=== PATIENT | male | born 1955 | race Caucasian/White ===

== ENCOUNTER 2018-04-20 14:48 | Emergency (ER) | payer BC, MEDICARE, OTHER ==
[2018-04-20] MEDS ORDERED: Lidocaine 2% with EPINEPHrine 1:100,000 20 ML MDV INJECT ONE (14:55)
[2018-04-20] MEDS ORDERED: Diphtheria,Pertussis(Acell),Tetanus Vaccine 0.5 ML Syringe IM ONE (15:54)
[2018-04-20] MEDS ORDERED: Take Home: Cyclobenzaprine 10 MG Tab, 4 Tab Pack PO ONE (15:56)
--- NOTE | 2018-04-20 16:02 | EDM.PDOC ---
ED HPI GENERAL MEDICAL PROBLEM - General Chief Complaint: Laceration Stated Complaint: left cabrera lac Time Seen by Provider: 04/20/18 14:55 Source of Information: Reports: Patient History Limitations: Reports: No Limitations - History of Present Illness INITIAL COMMENTS - FREE TEXT/NARRATIVE: Patient came in after catching his left leg in a grain auger. He is bleeding profusely from the anterior left leg Duration: Intermittent Location: Reports: Lower Extremity, Left Associated Symptoms: Reports: No Other Symptoms - Related Data Allergies Allergy/AdvReac Type Severity Reaction Status Date / Time codeine AdvReac Headache Verified 01/07/16 10:20 hydrocodone AdvReac Headache Verified 01/07/16 10:20 oxycodone AdvReac Headache Verified 01/07/16 10:20 Home Meds: Home Meds Cetirizine [ZyrTEC] 10 mg PO DAILY 01/07/16 [History] EPINEPHrine [Epipen 2-Juliano] 1 dose IM ASDIRECTED PRN 01/07/16 [History] Multivitamin [Multivitamins] 1 tab PO DAILY 01/07/16 [History] Omalizumab [Xolair] 300 mg SQ Q30D 01/07/16 [History] Ubidecarenone [Coq-10] 150 mg PO DAILY 01/07/16 [History] atorvaSTATin [Lipitor] 40 mg PO BEDTIME 01/07/16 [History] Past Medical History HEENT History: Reports: Hard of Hearing, Other (See Below) Other HEENT History: MYOPIA. PRESBYOPIA. MENIERE'S Cardiovascular History: Reports: CAD, High Cholesterol Respiratory History: Reports: Sleep Apnea Genitourinary History: Reports: Prostate Disorder Musculoskeletal History: Reports: Back Pain, Chronic Psychiatric History: Reports: None Hematologic History: Reports: None Immunologic History: Reports: None Oncologic (Cancer) History: Reports: None Dermatologic History: Reports: Urticaria Other Dermatologic History: ONYCHOMYCOSIS - Past Surgical History Head Surgeries/Procedures: Reports: None HEENT Surgical History: Reports: Tonsillectomy, Other (See Below) GI Surgical History: Reports: Colonoscopy, Hernia Repair/Other Endocrine Surgical History: Reports: None Musculoskeletal Surgical History: Reports: Other (See Below) Oncologic Surgical History: Reports: None Dermatological Surgical History: Reports: None Social & Family History - Caffeine Use Caffeine Use: Reports: None ED ROS GENERAL - Review of Systems Review Of Systems: See Below Constitutional: Reports: No Symptoms HEENT: Reports: No Symptoms Respiratory: Reports: No Symptoms Cardiovascular: Reports: No Symptoms Endocrine: Reports: No Symptoms GI/Abdominal: Reports: No Symptoms : Reports: No Symptoms Musculoskeletal: Reports: No Symptoms Skin: Reports: Wound Neurological: Reports: No Symptoms Psychiatric: Reports: No Symptoms Hematologic/Lymphatic: Reports: No Symptoms Immunologic: Reports: No Symptoms ED EXAM, GENERAL - Physical Exam Exam: See Below Exam Limited By: No Limitations General Appearance: Alert, WD/WN, Mild Distress Eye Exam: Bilateral Eye: EOMI, Normal Inspection Neurological: Alert, Oriented, CN II-XII Intact, Normal Cognition, Normal Gait, Normal Reflexes, No Motor/Sensory Deficits Psychiatric: Normal Affect, Normal Mood Skin Exam: Wound/Incision (11 cm linear wound to anterior cabrera running inferior to superior) ED GENERAL MEDICAL PROCEDURES - Laceration/Wound Repair Left Lower Anterior Leg Appearance: Muscle, Linear Distal NVT: Neuro & Vascular Intact, No Tendon Injury Anesthetic Type: Local Local Anesthesia - Lidocaine (Xylocaine): 2% with EPI Local Anesthetic Volume: Other (10) Skin Prep: Chlorhexidine (Hibiciens) Exploration/Debridement/Repair: Wound Explored, In a Bloodless Field, Explored to Base, Minimal Debridement, No Foreign Material Found Closed with: Sutures Suture Size: 3-0 # of Sutures: 25 Suture Type: Nylon, Running Suture Size: 3-0 # of Sutures: 6 Repaired with: Vicryl Sterile Dressing Applied: Nurse Tetanus Status Addressed: Yes Complications: No Course - Orders/Labs/Meds Meds: Medications Discontinued Medications Generic Name Dose Route Start Last Admin Trade Name Zoe PRN Reason Stop Dose Admin Lidocaine/Epinephrine 20 ml 04/20/18 14:55 04/20/18 15:02 Xylocaine 2% With Epinephrine 1:100,000 INJECT 04/20/18 14:56 20 ml ONETIME ONE Administration - Re-Assessments/Exams Free Text/Narrative Re-Assessment/Exam: 04/20/18 17:02 Wound anesthetized with 15 mL 2% lidocaine with epi, then flushed with NS and chlorhexadene. Wound inspected. No foreign materials found. Using sterile technique, muscle fascia closed with 6 running sutures of 3-0 vicryl, skin then closed with 25 running sutures of 3-0 nylon sutures. Tetanus vaccination given. Patient tolerated procedure, given signs to watch for, and encouraged to call with any questions or concerns. Verbalized understanding of instructions. Departure - Departure Time of Disposition: 16:15 Disposition: Home, Self-Care 01 Condition: Good Clinical Impression: Laceration of muscle(s) and tendon(s) of anterior muscle group at lower leg level, left leg, initial encounter, Laceration of left lower leg - Discharge Information *PRESCRIPTION DRUG MONITORING PROGRAM REVIEWED*: Not Applicable *COPY OF PRESCRIPTION DRUG MONITORING REPORT IN PATIENT LAURO: Not Applicable Instructions: Laceration Care, Adult, [id number], Sutured Wound Care, Easy-to -Read, Wound Infection, [id number] Forms: ED Department Discharge Additional Instructions: Plan: 1. Follow up with your primary doctor on Monday 2. No submerging the wound in ANY water - bath, ocean, pool, hot tub 3. Watch for any signs of infection including temperature of 101.5F or higher, fever and chills, redness going up the leg, increased swelling, redness, heat 4. May shower 5. Have sutures removed in 14 days 6. Please return to the emergency department this weekend if you have any problems with your left leg. This can include decreased range of motion, increasing amounts of pain, numbness or tingling to the foot. 7. Please call the ER if you have any additional questions or concerns related to your visit. - Problem List & Annotations (1) Laceration of left lower leg SNOMED Code(s): 871837569 Code(s): S81.812A - LACERATION WITHOUT FOREIGN BODY, LEFT LOWER LEG, INIT ENCNTR Status: Acute Priority: Low Current Visit: Yes Qualifiers: Encounter type: initial encounter Qualified Code(s): S81.812A - Laceration without foreign body, left lower leg, initial encounter (2) Laceration of muscle(s) and tendon(s) of anterior muscle group at lower leg level, left leg, initial encounter SNOMED Code(s): 246144900, 153633281 Code(s): S86.222A - LACERAT MUSC/TEND ANT GRP AT LOW LEG LEVEL, LEFT LEG, INIT Status: Acute Priority: Low Current Visit: Yes - Problem List Review Problem List Initiated/Reviewed/Updated: No - Assessment/Plan Assessment:: Left leg laceration to anterior aspect of left lower leg Plan: Plan: 1. Follow up with your primary doctor on Monday 2. No submerging the wound in ANY water - bath, ocean, pool, hot tub 3. Watch for any signs of infection including temperature of 101.5F or higher, fever and chills, redness going up the leg, increased swelling, redness, heat 4. May shower 5. Have sutures removed in 14 days 6. Please return to the emergency department this weekend if you have any problems with your left leg. This can include decreased range of motion, increasing amounts of pain, numbness or tingling to the foot. 7. Please call the ER if you have any additional questions or concerns related to your visit.
[2018-04-20] MEDS ORDERED: Diphtheria,Pertussis(Acell),Tetanus Vaccine 0.5 ML Syringe ONE (16:08)
[2018-04-20 19:34] VITALS: BP 140/69
== END 2018-04-20 16:15 | disposition home or self-care (01) ==
LOC: VM.ED 14:48
DX: S86.222A Laceration of muscle(s) and tendon(s) of anterior muscle group at lower leg level, left leg, initial encounter (principal); I25.10 Atherosclerotic heart disease of native coronary artery without angina pectoris; Z23 Encounter for immunization; Z88.5 Allergy status to narcotic agent; Z88.6 Allergy status to analgesic agent; Z79.899 Other long term (current) drug therapy; Z98.890 Other specified postprocedural states; W23.0XXA Caught, crushed, jammed, or pinched between moving objects, initial encounter
CPT/HCPCS: 12034; 90471; 90715; 99282; A9270

== ENCOUNTER 2018-06-03 08:54 | Emergency (ER) | payer BC ==
--- NOTE | 2018-06-03 09:00 | EDM.PDOC ---
ED HPI GENERAL MEDICAL PROBLEM - General Chief Complaint: Lower Extremity Injury/Pain Stated Complaint: MAY HAVE INFECTION ON HIS LEG Time Seen by Provider: 06/03/18 08:59 Source of Information: Reports: Patient, Old Records, RN, RN Notes Reviewed History Limitations: Reports: No Limitations - History of Present Illness INITIAL COMMENTS - FREE TEXT/NARRATIVE: Patient presents the emergency room at [facility] for the reevaluation of a left lower leg laceration. The patient was seen in this emergency room on April 20, 2018 after he got his left lower leg caught in a gr auger. The patient required suture closure of the laceration. The laceration was closed with 6 sutures and the patient was discharged home with recommendation to follow -up with his PCP the following week. The patient was seen in clinic on April and was started on cephalexin 500 mg 4 times a day. The patient returned to the clinic on April 26, 2018 for a recheck. No changes were made at that time. The patient was again seen in the clinic on May 14, 2018 with concerns of drainage from the wound. The patient was again started on cephalexin 500 mg 3 times a day for 5 days. The patient states today that he continues to have swelling, erythema, warmth around the laceration site. The patient does not have any pain. The patient is able to ambulate normally. The swelling starts just inferior to the left knee and extends down to the left ankle. The patient is here today for evaluation as he is concerned there may be ongoing infection. The patient has not had any fevers or chills. Otherwise no other concerns today. - Related Data Allergies Allergy/AdvReac Type Severity Reaction Status Date / Time codeine AdvReac Headache Verified 04/20/18 19:29 hydrocodone AdvReac Headache Verified 04/20/18 19:29 oxycodone AdvReac Headache Verified 04/20/18 19:29 Home Meds: Home Meds Cetirizine [ZyrTEC] 10 mg PO DAILY 01/07/16 [History] EPINEPHrine [Epipen 2-Juliano] 1 dose IM ASDIRECTED PRN 01/07/16 [History] Multivitamin [Multivitamins] 1 tab PO DAILY 01/07/16 [History] Ubidecarenone [Coq-10] 150 mg PO DAILY 01/07/16 [History] atorvaSTATin [Lipitor] 40 mg PO BEDTIME 01/07/16 [History] Amoxicillin/Clavulanate K [Augmentin 875-125 MG] 1 tab PO BID 04/20/18 [History] Gabapentin [Neurontin] 300 mg PO DAILY 04/20/18 [History] Sulfamethoxazole/Trimethoprim [Bactrim Ds Tablet] 1 each PO BID 9 Days #18 tablet 06/03/18 [Rx] predniSONE 20 mg PO BID 4 Days #8 tab 06/03/18 [Rx] Past Medical History HEENT History: Reports: Hard of Hearing, Other (See Below) Other HEENT History: MYOPIA. PRESBYOPIA. MENIERE'S Cardiovascular History: Reports: CAD, High Cholesterol Respiratory History: Reports: Sleep Apnea Genitourinary History: Reports: Prostate Disorder Musculoskeletal History: Reports: Back Pain, Chronic Psychiatric History: Reports: None Hematologic History: Reports: None Immunologic History: Reports: None Oncologic (Cancer) History: Reports: None Dermatologic History: Reports: Urticaria Other Dermatologic History: ONYCHOMYCOSIS - Past Surgical History Head Surgeries/Procedures: Reports: None HEENT Surgical History: Reports: Tonsillectomy, Other (See Below) GI Surgical History: Reports: Colonoscopy, Hernia Repair/Other Endocrine Surgical History: Reports: None Musculoskeletal Surgical History: Reports: Other (See Below) Oncologic Surgical History: Reports: None Dermatological Surgical History: Reports: None Social & Family History - Caffeine Use Caffeine Use: Reports: None Review of Systems - Review of Systems Review Of Systems: See Below Constitutional: Denies: Chills, Fever Respiratory: Denies: Shortness of Breath, Cough Cardiovascular: Denies: Chest Pain, Palpitations Skin: Reports: Wound (12cm well healing vertical laceration left lower leg) Neurological: Reports: No Symptoms ED EXAM, GENERAL - Physical Exam Exam: See Below Exam Limited By: No Limitations General Appearance: Alert, No Apparent Distress Respiratory/Chest: No Respiratory Distress, Lungs Clear, Normal Breath Sounds Cardiovascular: Normal Peripheral Pulses, Regular Rate, Rhythm Peripheral Pulses: 2+: Radial (L), Radial (R) Neurological: Alert, Oriented Skin Exam: Warm, Dry, Intact, Normal Color, Wound/Incision (Left lower anterior cabrera, well healing 12cm vertical laceration; warm, erythematous, non-tender; no drainage) Departure - Departure Time of Disposition: 09:26 Disposition: Home, Self-Care 01 Condition: Good Clinical Impression: Wound infection Cellulitis Qualifiers: Site of cellulitis: extremity Site of cellulitis of extremity: lower extremity Laterality: left Qualified Code(s): L03.116 - Cellulitis of left lower limb Laceration of leg Qualifiers: Encounter type: sequela Laterality: left Qualified Code(s): S81.812S - Laceration without foreign body, left lower leg, sequela - Discharge Information *PRESCRIPTION DRUG MONITORING PROGRAM REVIEWED*: Not Applicable *COPY OF PRESCRIPTION DRUG MONITORING REPORT IN PATIENT LAURO: Not Applicable Prescriptions: predniSONE 20 mg PO BID 4 Days #8 tab Sulfamethoxazole/Trimethoprim [Bactrim Ds Tablet] 1 each PO BID 9 Days #18 tablet Instructions: Wound Care, Adult, Cellulitis, Adult, Wound Infection Referrals: Jefry Mckeon MD [Primary Care Provider] - Forms: ED Department Discharge Additional Instructions: Stay well hydrated and rest. Will start on Bactrim twice a day for the next 10 days. Will also start steroids to help with the inflammation and swelling. Continue with same wound cares at home. May want to follow-up in clinic in the next 7 days to make sure everything is healing correctly. Call us with any questions or concerns. - Problem List Review Problem List Initiated/Reviewed/Updated: Yes - Assessment/Plan Assessment:: Lower left leg laceration Cellulitis, left lower leg Wound infection Plan: Given the assessment findings and ongoing cellulitis, I will switch the patient over to Bactrim twice daily for the next 10 days. I will also start the patient on steroids to help with the inflammation and swelling. Side effects of both medications were discussed. Continue with established wound care protocol at home. Would like the patient to follow-up in the clinic in the next 7 days for a recheck to make sure it is continuing to heal. Patient agrees with the plan of care and wishes to proceed. All questions answered.
[2018-06-03] MEDS ORDERED: Take Home: Sulfamethoxazole/Trimethoprim 800-160 MG Tab, 2 Tab Pack PO ONE (09:28)
[2018-06-03] MEDS ORDERED: Take Home: predniSONE 20 MG, 2 Tab Pack PO ONE (09:29)
[2018-06-03 10:53] VITALS: BP 145/93
== END 2018-06-03 09:45 | disposition home or self-care (01) ==
LOC: VM.ED 08:54
DX: S81.812S Laceration without foreign body, left lower leg, sequela (principal); L03.116 Cellulitis of left lower limb; Z88.5 Allergy status to narcotic agent; Z88.8 Allergy status to other drugs, medicaments and biological substances; X58.XXXS Exposure to other specified factors, sequela
CPT/HCPCS: 99283; A9270

== ENCOUNTER 2018-08-29 19:22 | Emergency (ER) | payer BC ==
[2018-08-29] MEDS ORDERED: Ondansetron 4 MG/2 ML SDV IVPUSH ONE (19:29)
[2018-08-29] MEDS ORDERED: Sodium Chloride 0.9% 10 ML Syringe FLUSH PRN (19:29)
[2018-08-29] MEDS ORDERED: diphenhydrAMINE 50 MG/ML SDV IVPUSH ONE (19:29)
[2018-08-29] MEDS ORDERED: Sodium Chloride 0.9% 1,000 ML IV ONE (19:35)
[2018-08-29 20:11] LABS: CHLORIDE,CL 103 mmol/L (98-107); SODIUM,NA 141 mmol/L (136-145)
[2018-08-29 20:13] LABS: ANION GAP 15.7 mmol/L (10-20)
[2018-08-29] MEDS ORDERED: LORazepam 2 MG/ML SDV IVPUSH ONE (20:23)
[2018-08-29] MEDS ORDERED: Scopolamine 1.5 MG Transdermal Patch TRDERM PRN (20:26)
--- NOTE | 2018-08-29 21:07 | EDM.PDOC ---
ED HPI GENERAL MEDICAL PROBLEM - General Chief Complaint: General Stated Complaint: Dizziness, vomiting Time Seen by Provider: 08/29/18 19:24 Source of Information: Reports: Patient, Family History Limitations: Reports: No Limitations - History of Present Illness INITIAL COMMENTS - FREE TEXT/NARRATIVE: Patient is brought in this evening with complaints of dizziness. Has a long standing history of Meniere disease with surgical intervention remotely. He states that two days ago he experienced this and after taking meclizine it did resolve. Likewise for yesterday. Today though he was in a tractor in a field when this started and he had to crawl down on the ground. Once there and his arrived, he had to crawl to the car. He had multiple episodes of emesis while on the way here and has had one after his arrival. Denies headache, chest pain, sob, abdomen hurts from multiple emesis. He denies blood in urine or stool. No diarrhea. Denies any pain. Onset: Gradual Duration: Getting Worse Location: Reports: Generalized Associated Symptoms: Reports: Nausea/Vomiting - Related Data Allergies Allergy/AdvReac Type Severity Reaction Status Date / Time codeine AdvReac Headache Verified 08/29/18 20:01 hydrocodone AdvReac Headache Verified 08/29/18 20:01 oxycodone AdvReac Headache Verified 08/29/18 20:01 Home Meds: Home Meds Cetirizine [ZyrTEC] 10 mg PO DAILY 01/07/16 [History] EPINEPHrine [Epipen 2-Juliano] 1 dose IM ASDIRECTED PRN 01/07/16 [History] Multivitamin [Multivitamins] 1 tab PO DAILY 01/07/16 [History] Ubidecarenone [Coq-10] 150 mg PO DAILY 01/07/16 [History] atorvaSTATin [Lipitor] 40 mg PO BEDTIME 01/07/16 [History] Amoxicillin/Clavulanate K [Augmentin 875-125 MG] 1 tab PO BID 04/20/18 [History] Gabapentin [Neurontin] 300 mg PO DAILY 04/20/18 [History] Sulfamethoxazole/Trimethoprim [Bactrim Ds Tablet] 1 each PO BID 9 Days #18 tablet 06/03/18 [Rx] predniSONE 20 mg PO BID 4 Days #8 tab 06/03/18 [Rx] Past Medical History HEENT History: Reports: Hard of Hearing, Other (See Below) Other HEENT History: MYOPIA. PRESBYOPIA. MENIERE'S Cardiovascular History: Reports: CAD, High Cholesterol Respiratory History: Reports: Sleep Apnea Genitourinary History: Reports: Prostate Disorder Musculoskeletal History: Reports: Back Pain, Chronic Psychiatric History: Reports: None Hematologic History: Reports: None Immunologic History: Reports: None Oncologic (Cancer) History: Reports: None Dermatologic History: Reports: Urticaria Other Dermatologic History: ONYCHOMYCOSIS - Past Surgical History Head Surgeries/Procedures: Reports: None HEENT Surgical History: Reports: Tonsillectomy, Other (See Below) GI Surgical History: Reports: Colonoscopy, Hernia Repair/Other Endocrine Surgical History: Reports: None Musculoskeletal Surgical History: Reports: Other (See Below) Oncologic Surgical History: Reports: None Dermatological Surgical History: Reports: None Social & Family History - Caffeine Use Caffeine Use: Reports: None ED ROS GENERAL - Review of Systems Review Of Systems: See Below Constitutional: Reports: No Symptoms HEENT: Reports: No Symptoms Respiratory: Reports: No Symptoms Cardiovascular: Reports: No Symptoms Endocrine: Reports: No Symptoms GI/Abdominal: Reports: Nausea, Vomiting : Reports: No Symptoms Musculoskeletal: Reports: No Symptoms Skin: Reports: No Symptoms Neurological: Reports: Dizziness Psychiatric: Reports: No Symptoms Hematologic/Lymphatic: Reports: No Symptoms Immunologic: Reports: No Symptoms ED EXAM, GENERAL - Physical Exam Exam: See Below Exam Limited By: No Limitations General Appearance: Alert, WD/WN, No Apparent Distress Eye Exam: Bilateral Eye: EOMI, Normal Inspection, PERRL Ears: Normal External Exam, Normal TMs, Other (bilateral hearing aids. [place] without them) Nose: Normal Inspection, Normal Mucosa, No Blood Throat/Mouth: Normal Inspection, Normal Lips, Normal Teeth, Normal Gums, Normal Oropharynx, Normal Voice, No Airway Compromise Head: Atraumatic, Normocephalic Neck: Normal Inspection, Supple, Non-Tender, Full Range of Motion Respiratory/Chest: No Respiratory Distress, Lungs Clear, Normal Breath Sounds, No Accessory Muscle Use, Chest Non-Tender Cardiovascular: Normal Peripheral Pulses, Regular Rate, Rhythm, No Edema, No Gallop, No JVD, No Murmur, No Rub Peripheral Pulses: 2+: Posterior Tibial (L), Posterior Tibial (R), Dorsalis Pedis (L), Dorsalis Pedis (R) GI/Abdominal: Normal Bowel Sounds, Soft, Non-Tender, No Organomegaly, No Distention, No Abnormal Bruit, No Mass Back Exam: Normal Inspection, Full Range of Motion, NT Extremities: Normal Inspection, Normal Range of Motion, Non-Tender, Normal Capillary Refill, No Pedal Edema Neurological: Alert, Oriented, CN II-XII Intact, Normal Cognition, Normal Gait, Normal Reflexes, No Motor/Sensory Deficits Psychiatric: Normal Affect, Normal Mood Skin Exam: Warm, Dry, Intact, Normal Color, No Rash Lymphatic: No Adenopathy Course - Vital Signs Last Recorded V/S: Last Vital Signs Temp 35.6 C 08/29/18 19:30 Pulse 58 L 08/29/18 19:30 Resp 14 08/29/18 19:30 BP 128/81 08/29/18 19:30 Pulse Ox 95 08/29/18 19:30 - Orders/Labs/Meds Orders: Active Orders 24 hr Category Date Time Status EKG Documentation Completion [RC] STAT Care 08/29/18 19:36 Ordered Scopolamine [Transderm-Scop] Med 08/29/18 20:26 Ordered 1.5 mg TRDERM Q72H PRN Sodium Chloride 0.9% [Saline Flush] Med 08/29/18 19:29 Ordered 10 ml FLUSH ASDIRECTED PRN Saline Lock Insert [OM.PC] Routine Oth 08/29/18 19:29 Ordered Medication Orders Scopolamine (Transderm-Scop) 1.5 mg TRDERM Q72H PRN PRN Reason: Nausea Last Admin: 08/29/18 20:43 Dose: 1.5 mg Sodium Chloride (Saline Flush) 10 ml FLUSH ASDIRECTED PRN PRN Reason: Keep Vein Open Labs: Laboratory Tests 08/29/18 08/29/18 Range/Units 19:40 19:40 WBC 6.9 (4.0-10.0) x10^3/uL RBC 5.33 (4.5-6.0) x10^6/uL Hgb 15.4 (14.0-18.0) g/dL Hct 45.8 (40.0-52.0) % MCV 85.9 (78.0-93.0) fL MCH 28.9 (26.0-32.0) pg MCHC 33.6 (32.0-36.0) g/dL RDW Coeff of Scott 14.1 (10.0-15.0) % Plt Count 198 (130-400) x10^3/uL Neut % (Auto) 49.4 L (50.0-80.0) % Lymph % (Auto) 35.7 (25.0-50.0) % [place] % (Auto) 9.3 (2.0-11.0) % Eos % (Auto) 5.0 H (0.0-4.0) % Baso % (Auto) 0.6 (0.2-1.2) % Sodium 141 (136-145) mmol/L Potassium 3.7 (3.5-5.1) mmol/L Chloride 103 (98-107) mmol/L Carbon Dioxide 26 (21-32) mmol/L Anion Gap 15.7 (10-20) mmol/L BUN 20 H (7-18) mg/dL Creatinine 1.1 (0.70-1.30) mg/dL Est Cr Clr Drug Dosing 74.46 mL/min Estimated GFR (MDRD) > 60 Glucose 110 H (74-106) mg/dL Calcium 8.9 (8.5-10.1) mg/dL Corrected Calcium 8.90 (8.5-10.1) mg/dL Magnesium 2.3 (1.8-2.4) mg/dL Total Bilirubin 0.4 (0.2-1.0) mg/dL AST 21 (15-37) U/L ALT 38 (16-63) U/L Alkaline Phosphatase 95 (46-116) U/L Troponin I < 0.017 (<=0.056) ng/mL Total Protein 7.4 (6.4-8.2) g/dL Albumin 4.0 (3.4-5.0) g/dL Globulin 3.4 Albumin/Globulin Ratio 1.18 Meds: Medications Generic Name Dose Route Start Last Admin Trade Name Freq PRN Reason Stop Dose Admin Scopolamine 1.5 mg 08/29/18 20:26 08/29/18 20:43 Transderm-Scop TRDERM 1.5 mg Q72H PRN Administration Nausea Sodium Chloride 10 ml 08/29/18 19:29 Saline Flush FLUSH ASDIRECTED PRN Keep Vein Open Discontinued Medications Generic Name Dose Route Start Last Admin Trade Name Freq PRN Reason Stop Dose Admin Diphenhydramine HCl 25 mg 08/29/18 19:29 08/29/18 20:12 Benadryl IVPUSH 08/29/18 19:30 25 mg ONETIME ONE Administration Sodium Chloride 1,000 mls @ 999 mls/hr 08/29/18 19:35 08/29/18 20:05 Normal Saline IV 08/29/18 20:35 999 mls/hr ONETIME ONE Administration Lorazepam 1 mg 08/29/18 20:23 08/29/18 20:30 Ativan IVPUSH 08/29/18 20:24 1 mg STAT ONE Administration Ondansetron HCl 4 mg 08/29/18 19:29 08/29/18 20:10 Zofran IVPUSH 08/29/18 19:30 4 mg ONETIME ONE Administration Departure - Departure Time of Disposition: 22:22 Disposition: Home, Self-Care 01 Condition: Fair Clinical Impression: Acute labyrinthitis - Discharge Information *PRESCRIPTION DRUG MONITORING PROGRAM REVIEWED*: Not Applicable *COPY OF PRESCRIPTION DRUG MONITORING REPORT IN PATIENT LAURO: Not Applicable Instructions: Labyrinthitis, [id number] Referrals: Jefry Mckeon MD [Primary Care Provider] - Additional Instructions: Plan 1. Remove scopalamine patch on Monday. You can remove it sooner if your dizziness resolves 2. Take antivert every 8 hours as needed for dizziness 3. You may want to reduce work hours for the next few days 4. Stay well hydrated. 5. Avoid driving while having dizzy episodes 6. Follow up with your primary provider at the clinic as needed for additional symptom management 7. Please call with any additional questions or concerns - Problem List & Annotations (1) Acute labyrinthitis SNOMED Code(s): 35609157 Code(s): H83.09 - LABYRINTHITIS, UNSPECIFIED EAR Status: Acute Priority: Medium Current Visit: Yes Qualifiers: Laterality: unspecified laterality Qualified Code(s): H83.09 - Labyrinthitis, unspecified ear - Problem List Review Problem List Initiated/Reviewed/Updated: Yes - My Orders Last 24 Hours: My Active Orders 08/29/18 19:29 Sodium Chloride 0.9% [Saline Flush] 10 ml FLUSH ASDIRECTED PRN Saline Lock Insert [OM.PC] Routine 08/29/18 19:36 EKG Documentation Completion [RC] STAT 08/29/18 20:26 Scopolamine [Transderm-Scop] 1.5 mg TRDERM Q72H PRN - Assessment/Plan Last 24 Hours: My Active Orders 08/29/18 19:29 Sodium Chloride 0.9% [Saline Flush] 10 ml FLUSH ASDIRECTED PRN Saline Lock Insert [OM.PC] Routine 08/29/18 19:36 EKG Documentation Completion [RC] STAT 08/29/18 20:26 Scopolamine [Transderm-Scop] 1.5 mg TRDERM Q72H PRN Assessment:: dizziness acute labyrinthitis
[2018-08-29 21:42] VITALS: BP 118/75
[2018-08-29] MEDS ORDERED: Meclizine 25 MG Tab PO ONE (21:47)
[2018-08-29] MEDS ORDERED: Take Home: Ondansetron 4 MG Tab.DIS, 2 Tab Pack PO ONE (21:49)
== END 2018-08-29 22:30 | disposition home or self-care (01) ==
LOC: VM.ED 19:22
DX: H83.09 Labyrinthitis, unspecified ear (principal); I25.10 Atherosclerotic heart disease of native coronary artery without angina pectoris; E78.00 Pure hypercholesterolemia, unspecified; Z88.5 Allergy status to narcotic agent; Z79.899 Other long term (current) drug therapy
CPT/HCPCS: 36415; 80053; 83735; 84484; 85025; 93005; 96361; 96374; 96375; 99284-25; A9270-GY; J1200; J2060; J2405; J7030

== ENCOUNTER 2019-09-04 19:53 | Emergency (ER) | payer MEDICARE ==
--- NOTE | 2019-09-04 20:19 | EDM.PDOC ---
ED HPI GENERAL MEDICAL PROBLEM - General Stated Complaint: FELL, HIT HEAD Time Seen by Provider: 09/04/19 20:10 Source of Information: Reports: Patient History Limitations: Reports: No Limitations - History of Present Illness INITIAL COMMENTS - FREE TEXT/NARRATIVE: Patient comes emergency department today from home by personal vehicle following a syncopal episode. This patient has a longstanding history of Mnire's disease as well as only struggling with syncopal episodes. They recently started on on triamterene for his Mnire's disease. He is seeing a specialist in [place] for his recurrent Mnire's disease. He is currently getting injections in his right ear of steroids every month next one is due at the beginning of September. He was recently at [facility] in [place] to see the advertising manager had a tilt table test where he was found to be hypotensive and was told his tilt table test was negative. He was started on Midorin for orthostatic hypotension. Approximately 1 hour prior to arrival when he was at home about 5 tonight the patient was working at home when he was leaning forward he stood up turned and looked to his side when suddenly he felt very lightheaded and dizzy. He actually had a syncopal episode where he does not recall falling to the ground. Typically with his Mnire's disease he does not have syncopal episodes. But he has had recurrent more increasing episodes of syncope and they are concerned for his hypotension causing this. Prior to the episode tonight he did not have any chest pain shortness of breath or difficulty breathing. No weakness dizziness lightheadedness. No vertigo. No palpitations. No racing or slow heart rate sensation. He has had no recent fever or chills. No cough or congestion. No abdominal pain. No nausea no vomiting. No fever no chills. No hematuria dysuria urinary frequency or diarrhea. He has been eating and drinking appropriately. He does complain of pain to his left forehead and his left jaw where he has abrasions from his fall. He also complains of pain to bilateral hands which he feels that he must of tried to catch himself and injured his hands as he was falling. He denies any paresthesias of his upper or lower extremities. He initially had some blurred vision although this is resolved. When he is laying still in the bed he does not have any vertigo or Mnire's type symptoms although he does have a little bit of visual instability where it feels like what he is focusing on is moving ever so slightly. No black spots in his vision no floaters or flashing lights. Headache Pain Score (Numeric/FACES): 8 Left Hand Pain Score (Numeric/FACES): 6 Right Finger-Thumb Pain Score (Numeric/FACES): 8 - Related Data Allergies Allergy/AdvReac Type Severity Reaction Status Date / Time levofloxacin Allergy Itching Verified 09/04/19 20:23 codeine AdvReac Headache Verified 09/04/19 20:22 hydrocodone AdvReac Headache Verified 09/04/19 20:22 oxycodone AdvReac Headache Verified 09/04/19 20:22 sulfamethoxazole AdvReac Nausea Verified 09/04/19 20:23 [From Bactrim] trimethoprim [From Bactrim] AdvReac Nausea Verified 09/04/19 20:23 Home Meds: Home Meds Cetirizine [ZyrTEC] 10 mg PO DAILY 01/07/16 [History] EPINEPHrine [Epipen 2-Juliano] 1 dose IM ASDIRECTED PRN 01/07/16 [History] Multivitamin [Multivitamins] 1 tab PO DAILY 01/07/16 [History] atorvaSTATin [Lipitor] 40 mg PO BEDTIME 01/07/16 [History] Gabapentin [Neurontin] 300 mg PO DAILY 04/20/18 [History] Cyclobenzaprine [Flexeril] 10 mg PO BEDTIME PRN 09/04/19 [History] Ibuprofen 600 mg PO Q4H PRN 09/04/19 [History] Meclizine HCl 25 mg PO Q4H PRN 09/04/19 [History] Midodrine 5 mg PO BID 09/04/19 [History] Omalizumab [Xolair] 300 mg SQ Q30D 09/04/19 [History] Ondansetron [Zofran ODT] 4 mg PO Q4H PRN 09/04/19 [History] Psyllium [Metamucil] 0.52 gm PO BID 09/04/19 [History] Triamterene/Hydrochlorothiazid [Triamterene-HCTZ 37.5-25 MG] 1 each PO DAILY [History] diazePAM [Valium] 5 mg PO DAILY 09/04/19 [History] Past Medical History HEENT History: Reports: Hard of Hearing, Other (See Below) Other HEENT History: MYOPIA. PRESBYOPIA. MENIERE'S Cardiovascular History: Reports: CAD, High Cholesterol Respiratory History: Reports: Sleep Apnea Genitourinary History: Reports: Prostate Disorder Musculoskeletal History: Reports: Back Pain, Chronic Psychiatric History: Reports: None Hematologic History: Reports: None Immunologic History: Reports: None Oncologic (Cancer) History: Reports: None Dermatologic History: Reports: Urticaria Other Dermatologic History: ONYCHOMYCOSIS - Past Surgical History Head Surgeries/Procedures: Reports: None HEENT Surgical History: Reports: Tonsillectomy, Other (See Below) GI Surgical History: Reports: Colonoscopy, Hernia Repair/Other Endocrine Surgical History: Reports: None Musculoskeletal Surgical History: Reports: Other (See Below) Oncologic Surgical History: Reports: None Dermatological Surgical History: Reports: None Social & Family History - Caffeine Use Caffeine Use: Reports: None ED ROS GENERAL - Review of Systems Review Of Systems: Comprehensive ROS is negative, except as noted in HPI. - Physical Exam Exam: See Below Exam Limited By: No Limitations General Appearance: Alert, WD/WN, No Apparent Distress Eye Exam: Bilateral Eye: EOMI, Nystagmus (When his eyes are to the left. None when his eyes are to the right caudad or cephalad), PERRL Ears: Normal External Exam, Normal Canal. No: Normal TMs (His left TM is unremarkable. His right TM is clear pearly mckeon but has some scab formation at the 5:00. Has a normal cone of light. There is no effusion or erythema.) Nose: Normal Inspection, Normal Mucosa Throat/Mouth: Normal Inspection, Normal Lips, Normal Teeth, Normal Gums, Normal Oropharynx, No Airway Compromise Head Exam: Normocephalic, Scalp Tenderness (Listed under facial abrasions), Facial Abrasions (He has a quarter size abrasion to the left upper aspect of his forehead. He also has an abrasion on the left mid lower jaw. There is no overt bony deformity. There is no subcutaneous emphysema. THere is a similar left lateral zygomatic arch abrasion without bony deformity as well. ). No: Scalp Lacerations, Scalp Swelling, Scalp Abrasions, Scalp Ecchymosis, Scalp Hematoma, Facial Ecchymosis, Facial Lacerations, Facial Swelling, Facial Tenderness (As listed in the area of facial abrasions), Sinus Tenderness Neck: Normal Inspection, Supple, Non-Tender, Full Range of Motion. No: Limited Range of Motion, Lymphadenopathy (L), Lymphadenopathy (R), Tender Lateral, Tender Midline Respiratory/Chest: No Respiratory Distress, Lungs Clear, Normal Breath Sounds, No Accessory Muscle Use, Chest Non-Tender Cardiovascular: Normal Peripheral Pulses, Regular Rate, Rhythm, No Edema GI/Abdominal: Normal Bowel Sounds, Soft, Non-Tender, No Distention (Male) Exam: Deferred Rectal (Males) Exam: Deferred Neuro Exam (Abbreviated): Alert, Oriented, CN II-XII Intact, Normal Cognition, Normal Gait, No Motor/Sensory Deficits, Other (No ataxia of his upper or lower extremities. No pronator drift of his upper or lower extremities.) Back Exam: Normal Inspection, Full Range of Motion Extremities: Normal Inspection, Normal Range of Motion, No Pedal Edema, Normal Capillary Refill Psychiatric: Normal Affect, Normal Mood Skin Exam: Warm, Dry, Intact, Normal Color, No Rash EKG INTERPRETATION EKG Date: 09/04/19 Time: 20:04 Rhythm: NSR Rate (Beats/Min): 62 [place]: Normal P-Wave: Present QRS: Normal ST-T: Normal QT: Normal Comparison: No Change (when compared to EKG from [facility] 04-18-19) Course - Vital Signs Last Recorded V/S: Last Vital Signs Temp 36.9 C 09/04/19 20:00 Pulse 66 09/04/19 20:00 Resp 16 09/04/19 20:00 BP 129/89 09/04/19 20:00 Pulse Ox 97 09/04/19 20:00 Orthostatic Blood Pressure [ 125/84 Standing] Orthostatic Blood Pressure [ 122/82 Sitting] Orthostatic Blood Pressure [ 113/67 Supine] - Orders/Labs/Meds Orders: Active Orders 24 hr Category Date Time Status EKG 12 Lead [EKG Documentation Completion] [RC] STAT Care 09/04/19 21:00 Active Labs: Laboratory Tests 09/04/19 09/04/19 Range/Units 20:15 20:15 WBC 7.1 (4.0-10.0) x10^3/uL RBC 5.21 (4.5-6.0) x10^6/uL Hgb 15.0 (14.0-18.0) g/dL Hct 43.9 (40.0-52.0) % MCV 84.3 (78.0-93.0) fL MCH 28.8 (26.0-32.0) pg MCHC 34.2 (32.0-36.0) g/dL RDW Coeff of Scott 14.3 (10.0-15.0) % Plt Count 174 (130-400) x10^3/uL Neut % (Auto) 67.5 (50.0-80.0) % Lymph % (Auto) 20.1 L (25.0-50.0) % [place] % (Auto) 7.9 (2.0-11.0) % Eos % (Auto) 3.5 (0.0-4.0) % Baso % (Auto) 1.0 (0.2-1.2) % Sodium 141 (136-145) mmol/L Potassium 3.8 (3.5-5.1) mmol/L Chloride 102 (98-107) mmol/L Carbon Dioxide 27 (21-32) mmol/L Anion Gap 15.8 (10-20) mmol/L BUN 21 H (7-18) mg/dL Creatinine 1.0 (0.70-1.30) mg/dL Est Cr Clr Drug Dosing 80.83 mL/min Estimated GFR (MDRD) > 60 Glucose 87 (74-106) mg/dL Calcium 9.4 (8.5-10.1) mg/dL Corrected Calcium 9.32 (8.5-10.1) mg/dL Total Bilirubin 0.7 (0.2-1.0) mg/dL AST 33 (15-37) U/L ALT 40 (16-63) U/L Alkaline Phosphatase 89 (46-116) U/L Troponin I < 0.017 (<=0.056) ng/mL Total Protein 7.4 (6.4-8.2) g/dL Albumin 4.1 (3.4-5.0) g/dL Globulin 3.3 Albumin/Globulin Ratio 1.24 TSH, Ultra Sensitive 2.049 (0.358-3.74) uIU/mL Meds: Medications Discontinued Medications Generic Name Dose Route Start Last Admin Trade Name Freq PRN Reason Stop Dose Admin Meclizine HCl 25 mg 09/04/19 20:19 09/04/19 20:39 Antivert PO 09/04/19 20:20 25 mg ONETIME ONE Administration - Radiology Interpretation Free Text/Narrative:: CT facial bones per radiology shows no acute fracture. CT of the head without contrast per radiology shows no acute intracranial findings. Tray of the right hand per radiology shows no acute findings. X-ray of the left hand per radiology shows a nondisplaced fracture at the base of the second proximal phalanx - Re-Assessments/Exams Free Text/Narrative Re-Assessment/Exam: 09/06/19 CT of the head was negative. As well as CT of the facial bones. The abrasions on the face do not need any repair. We did do orthostatic blood pressures he was not orthostatic. Although this really is more the presentation of a syncopal episode with a known very past history of orthostatic hypotension. He really does not relate any Mnire's or vertigo type symptoms when the syncope happened. Morris evaluation is unremarkable. His EKG as well. Is an increasing problem that he was recently started on Midodrine. Is on 5 mg twice daily. I will increase him to 5 mg 3 times daily. He needs to make sure that he is making position changes slowly. Continue to follow-up with ENT. He is understanding this his questions are answered and he is comfortable with this plan. Place a volar splint to the right left second finger in the position in neutral which was a well padded finger splint. We will have him follow-up with primary care for following of the fracture of the proximal phalanx 09/05/19 10:54 Departure - Departure Time of Disposition: 21:34 Disposition: Home, Self-Care 01 Clinical Impression: Orthostatic hypotension Syncope Qualifiers: Syncope type: unspecified Qualified Code(s): R55 - Syncope and collapse Fracture of proximal phalanx of digit of left hand Qualifiers: Encounter type: initial encounter Fracture type: closed Qualified Code(s): S62.619A - Displaced fracture of proximal phalanx of unspecified finger, initial encounter for closed fracture Facial abrasion Qualifiers: Encounter type: initial encounter Qualified Code(s): S00.81XA - Abrasion of other part of head, initial encounter - Discharge Information Instructions: Finger Fracture, Adult, [id number], Abrasion, [id number], Syncope, [id number] Referrals: Jefry Mckeon MD [Primary Care Provider] - Forms: ED Department Discharge Additional Instructions: Tylenol and or Ibuprofen as needed for pain. Cleanse abrasions twice daily with soap and water. Bacitracin and bandage until healed. Finger splint, wear at all times, may take off to shower. Recheck with PCP in 7 days. Increase your Midodrine to 5mg, 1 tablet three times a day with food. Use your prescription your received this week. Make position changes slowly especially if in the bent over position. Return to the ED if new or worsening symptoms. Follow up with PCP in 7 days for recheck of symptoms of syncope as well as the finger fracture. Sepsis Event Note - Focused Exam Date Exam was Performed: 09/05/19 Time Exam was Performed: 10:52 - My Orders Last 24 Hours: My Active Orders 09/04/19 21:00 EKG 12 Lead [EKG Documentation Completion] [RC] STAT - Assessment/Plan Last 24 Hours: My Active Orders 09/04/19 21:00 EKG 12 Lead [EKG Documentation Completion] [RC] STAT Assessment:: Syncope, most likely from orthostatic hypotension Facial abrasions. Left 2nd finger proximal phalanx non-displaced fracture. Hx of Menieres disease. History of orthostatic hypotension Plan: Tylenol and or Ibuprofen as needed for pain. Cleanse abrasions twice daily with soap and water. Bacitracin and bandage until healed. Finger splint, wear at all times, may take off to shower. Recheck with PCP in 7 days. Increase your Midodrine to 5mg, 1 tablet three times a day with food. Use your prescription your received this week. Make position changes slowly especially if in the bent over position. Return to the ED if new or worsening symptoms. Follow up with PCP in 7 days for recheck of symptoms of syncope as well as the finger fracture.
[2019-09-04] MEDS: Meclizine 25 MG Tab PO ONE (20:39)
[2019-09-04 20:56] VITALS: BP 129/89; PULSE 66
[2019-09-04 21:21] LABS: ANION GAP 15.8 mmol/L (10-20); CHLORIDE,CL 102 mmol/L (98-107); SODIUM,NA 141 mmol/L (136-145)
--- NOTE | 2019-09-05 07:54 | CT ---
[id number] CT/CT Head WO IV EXAM: CT Head WO IV CLINICAL DATA: SYNCOPE, HEADACHE, FACIAL INJURY. COMPARISON STUDY: None FINDINGS: No intracranial hemorrhage, extra-axial fluid collection, mass, or acute ischemia. Generalized parenchymal atrophy with scattered areas of nonspecific white matter disease, commonly seen as sequela of chronic microvascular ischemia. Soft tissues are unremarkable. Paranasal sinuses and mastoid air cells are clear. IMPRESSION: No acute intracranial findings. Rinku Mckeon DO 09/05/19 0752 Thank you for allowing us to participate in the care of your patient.
--- NOTE | 2019-09-05 07:55 | CT ---
[id number] CT/CT Facial Bones WO IV EXAM: CT FACIAL BONES. INDICATION: SYNCOPE, HEADACHE, FACIAL INJURY. COMPARISON: None. DISCUSSION: No facial bone fracture or suspicious osseous lesion identified. Mild mucosal thickening of the maxillary and ethmoid air cells. Postsurgical changes of the right mastoid air cells. The left mastoid air cells and remaining paranasal sinuses are well aerated and clear. The orbits and facial soft tissues are unremarkable. IMPRESSION: 1. No acute facial bone fractures. Rinku Mckeon DO 09/05/19 0753 Thank you for allowing us to participate in the care of your patient.
--- NOTE | 2019-09-05 09:05 | CR ---
[id number] RAD/RAD Hand Bilateral 2V EXAM: 6 VIEWS LEFT HAND. INDICATION: FALL, HAND INJURY BILATERALLY. COMPARISON: None. DISCUSSION: No fracture, dislocation or other acute osseous abnormality. IMPRESSION: 1. No acute osseous abnormalities. Rinku Mckeon DO 09/05/19 0904 Thank you for allowing us to participate in the care of your patient.
== END 2019-09-04 21:50 | disposition home or self-care (01) ==
LOC: VM.ED 19:53
DX: S62.641A Nondisplaced fracture of proximal phalanx of left index finger, initial encounter for closed fracture (principal); S00.81XA Abrasion of other part of head, initial encounter; I25.10 Atherosclerotic heart disease of native coronary artery without angina pectoris; E78.00 Pure hypercholesterolemia, unspecified; Z88.1 Allergy status to other antibiotic agents; Z88.5 Allergy status to narcotic agent; Z88.2 Allergy status to sulfonamides; Z79.899 Other long term (current) drug therapy; W19.XXXA Unspecified fall, initial encounter
CPT/HCPCS: 70450; 70486; 73130-50; 80053; 84443; 84484; 85025; 93005; 93010; 99284-25; 99284-GF; A9270-GY

== ENCOUNTER 2021-01-20 20:16 | Emergency (ER) | payer MEDICARE ==
[2021-01-20] MEDS ORDERED: Sodium Chloride 0.9% 1,000 ML IV ONE (20:30)
[2021-01-20] MEDS ORDERED: fentaNYL 50 MCG/ML SDV IVPUSH ONE ×2 (20:38→20:57)
[2021-01-20] MEDS ORDERED: fentaNYL 50 MCG/ML SDV ONE (20:57)
[2021-01-20] MEDS ORDERED: fentaNYL 100 MCG/2 ML SDV ONE (21:11)
[2021-01-20] MEDS ORDERED: Take Home: Acetaminophen/oxyCODONE 325-5 MG, 5 Tab Pack PO ONE (21:43)
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
[2021-01-20] MEDS ORDERED: HYDROmorphone 2 MG Tab PO PRN (22:00)
[2021-01-20 22:11] LABS: ANION GAP 12.3 mmol/L (5-15); CHLORIDE,CL 105 mmol/L (98-107); SODIUM,NA 139 mmol/L (136-145)
[2021-01-21] MEDS ORDERED: fentaNYL 50 MCG/ML SDV IVPUSH ONE
[2021-01-21] MEDS ORDERED: fentaNYL 100 MCG/2 ML SDV IVPUSH ONE
[2021-01-21 06:32] VITALS: BP 145/76; PULSE 78
== END 2021-01-20 22:28 | disposition home or self-care (01) ==
LOC: VM.ED 20:16
DX: T23.231A Burn of second degree of multiple right fingers (nail), not including thumb, initial encounter (principal); T20.211A Burn of second degree of right ear [any part, except ear drum], initial encounter; T23.102A Burn of first degree of left hand, unspecified site, initial encounter; T31.0 Burns involving less than 10% of body surface; I25.10 Atherosclerotic heart disease of native coronary artery without angina pectoris; E78.00 Pure hypercholesterolemia, unspecified; Z79.899 Other long term (current) drug therapy; Z88.1 Allergy status to other antibiotic agents; Z88.5 Allergy status to narcotic agent; X03.0XXA Exposure to flames in controlled fire, not in building or structure, initial encounter
CPT/HCPCS: 36415; 80053; 82550; 85025; 96374; 99283; 99283-25; A9270-GY; J3010; J7030

== ENCOUNTER 2021-03-18 09:24 | Day surgery (SDC) | payer MEDICARE ==
[~2021-03-18 09:24] MED LIST: Lactated Ringers 1,000 ML IV SCH
[2021-03-18] MEDS ORDERED: Propofol 200 MG/20 ML SDV ONE ×2 (12:04→12:23)
[2021-03-18] MEDS ORDERED: fentaNYL 100 MCG/2 ML SDV ONE (12:04)
[2021-03-18 13:24] VITALS: BP 95/59; PULSE 59
--- NOTE | 2021-03-19 07:16 | OR ---
PREOPERATIVE DIAGNOSES: 1. Palpable rectal lump/polyp on recent physical exam. 2. History of previous polyps. Last colonoscopy was 5 years ago. There is no known family history of colon cancer. 3. History of hemorrhoids. POSTOPERATIVE DIAGNOSES: 1. Two small polyps removed using cold forceps. a. 3 mm polyp at 90 cm. b. 4 mm polyp at 40 cm. 2. Several hypertrophied anal papilla present and palpable on rectal exam. The largest one of these was biopsied x3 bites. 3. Mild left-sided diverticulosis. 4. Normal-appearing terminal ileum. 5. Redundant colon. PROCEDURE: Colonoscopy with polypectomy x2 using cold forceps and cold biopsy x1 site using cold forceps. SURGEON: Blanco Anderson M.D. ANESTHESIA: Monitored anesthesia care. BOWEL PREP: Fair. DESCRIPTION OF PROCEDURE: Roderick is a 65-year-old male who was brought to the endoscopy suite after discussing risks and benefits of the procedure. Informed consent was obtained for conscious sedation and colonoscopy with or without biopsy and/or polypectomy. We also discussed possibility of missed lesions. Pre-procedure exam was unremarkable. IV, oxygen, and monitors were placed. The patient was placed in the left lateral decubitus position. Sedation was administered and a digital rectal exam was performed and was remarkable for palpable lump at the anal verge, just slightly proximal to this. Colonoscope was passed into the rectum and slowly advanced all the way to the cecum. The patient did have somewhat floppy and redundant colon and did require some abdominal pressure to obtain cecal intubation. The cecum was viewed and photographed. Ileocecal valve was identified, and the terminal ileum was viewed and appeared normal. The ascending colon was unremarkable. The transverse colon revealed 3 mm polyp at 90 cm, removed using cold forceps. The descending colon revealed a 4 mm polyp at 40 cm, removed using cold forceps. The left colon did reveal mild diverticulosis. Otherwise, sigmoid colon unremarkable. Retroflexion was performed, and rectal mucosa was remarkable for several hypertrophied anal papilla including one larger one. This was biopsied x3 bites using cold forceps. No worrisome features appreciated. Scope was removed. The patient tolerated the procedure well. The patient was monitored until that baseline status. Discharge instructions were reviewed and the patient was discharged in good condition. COMPLICATIONS: None. TOTAL TIME: 43 minutes. ESTIMATED BLOOD LOSS: About 1 mL. RECOMMENDATIONS/FOLLOWUP: We will await results of path report to determine ideal followup interval. I would like to kindly thank Kelvin Abrams for this referral. DMB: 03/18/2021 13:12:27 MODL: 03/18/2021 15:58:08 /[id number]
== END 2021-03-18 14:19 | disposition home or self-care (01) ==
LOC: VM.SDS 09:24
PROVIDERS: ATTEND Family Medicine
DX: D12.3 Benign neoplasm of transverse colon (principal); K62.1 Rectal polyp; K57.30 Diverticulosis of large intestine without perforation or abscess without bleeding; K64.4 Residual hemorrhoidal skin tags; I25.10 Atherosclerotic heart disease of native coronary artery without angina pectoris; E78.5 Hyperlipidemia, unspecified; G47.33 Obstructive sleep apnea (adult) (pediatric); G25.81 Restless legs syndrome; Z79.899 Other long term (current) drug therapy; Z88.5 Allergy status to narcotic agent; Z88.8 Allergy status to other drugs, medicaments and biological substances; Z88.1 Allergy status to other antibiotic agents
CPT/HCPCS: 00811; 88305; J2704; J3010; J7120

== ENCOUNTER 2022-12-03 16:50 | Emergency (ER) | payer MEDICARE ==
[2022-12-03 17:01] VITALS: BP 123/60; PULSE 76
[2022-12-03] MEDS ORDERED: Take Home: predniSONE 20 MG, 2 Tab Pack PO ONE (18:19)
== END 2022-12-03 18:34 | disposition home or self-care (01) ==
LOC: VM.ED 16:50
DX: J40 Bronchitis, not specified as acute or chronic (principal); E78.00 Pure hypercholesterolemia, unspecified; I25.10 Atherosclerotic heart disease of native coronary artery without angina pectoris; Z88.1 Allergy status to other antibiotic agents; Z88.5 Allergy status to narcotic agent; Z88.8 Allergy status to other drugs, medicaments and biological substances; Z88.6 Allergy status to analgesic agent; Z88.2 Allergy status to sulfonamides
CPT/HCPCS: 71046; 99283; J7512

== ENCOUNTER 2023-12-07 10:58 | Inpatient (IN) | payer MEDICARE ==
[2023-12-07] MEDS ORDERED: Sodium Chloride 0.9% 10 ML Syringe FLUSH PRN (11:05)
[2023-12-07] MEDS: HYDROmorphone 0.5 MG/0.5 ML Syringe IVPUSH ONE (11:17)
[2023-12-07 11:18] LABS: BASOPHILS PERCENT AUTO 0.2 % (0.2-1.2); EOSINOPHILS PERCENT AUTO 0.2 % (0.0-4.0); HEMATOCRIT 43.3 % (40.0-52.0); HEMOGLOBIN 14.7 g/dL (14.0-18.0); IMMATURE GRAN ABSOLUTE AUTO 0.01 x10^3/uL (0.00-0.07); LYMPHOCYTES ABSOLUTE AUTO 0.8 x10^3/uL (1.0-4.8); LYMPHOCYTES PERCENT AUTO 7.9 % (25.0-50.0); MEAN CORPUSCULAR HEMOGLOBIN 28.7 pg (26.0-32.0); MEAN CORPUSCULAR HGB CONC 33.9 g/dL (32.0-36.0); MEAN CORPUSCULAR VOLUME 84.6 fL (78.0-93.0); MONOCYTES PERCENT AUTO 9.1 % (2.0-11.0); NEUTROPHILS ABSOLUTE AUTO 8.8 x10^3/uL (1.8-7.7); NEUTROPHILS PERCENT AUTO 82.5 % (50.0-80.0); PLATELET COUNT,PLT 224 x10^3/uL (130-400); RED BLOOD CELL COUNT 5.12 x10^6/uL (4.5-6.0); WHITE BLOOD CELL COUNT,WBC 10.7 x10^3/uL (4.0-10.0)
[2023-12-07 11:39] LABS: INR 1.2 (0.9-1.1); LACTIC ACID 1.8 mmol/L (0.4-2.0); PROTHROMBIN TIME 12.3 SEC (8.9-11.5); PTT,PARTIAL THROMBOPLSTIN TIME 28.7 SEC (21.9-33.8)
[2023-12-07 11:44] LABS: A/G RATIO 0.88; ALANINE AMINOTRANSFERASE,ALT 33 U/L (16-63); ALBUMIN 3.7 g/dL (3.4-5.0); ALKALINE PHOSPHATASE 115 U/L (46-116); ASPARTATE AMNIOTRANSFERASE,AST 22 U/L (15-37); BILIRUBIN TOTAL 0.8 mg/dL (0.2-1.0); BLOOD UREA NITROGEN,BUN 21 mg/dL (7-18); C-REACTIVE PROTEIN 9.73 mg/dL (<=0.50); CALCIUM 9.7 mg/dL (8.5-10.1); CARBON DIOXIDE,CO2 31 mmol/L (21-32); CHLORIDE,CL 98 mmol/L (98-107); GLUCOSE RANDOM 152 mg/dL (70-99); MAGNESIUM 2.3 mg/dL (1.8-2.4); POTASSIUM,K 3.4 mmol/L (3.5-5.1); PRO B-TYPE NATRIUR PEPT,BNPPRO 137 pg/mL (<=125); PROTEIN TOTAL,TP 7.9 g/dL (6.4-8.2); SODIUM,NA 137 mmol/L (136-145)
[2023-12-07 11:45] LABS: ANION GAP 11.4 mmol/L (5-15); ESTIMATED GFR 81 mL/min (>=60)
[2023-12-07 12:00] LABS: CORONAVIRUS COVID-19 NAA NEGATIVE (NEGATIVE); INFLUENZA A NAA NEGATIVE (NEGATIVE); INFLUENZA B NAA NEGATIVE (NEGATIVE); RESPIRATORY SYNCYTIAL VIR NAA NEGATIVE (NEGATIVE)
[2023-12-07] MEDS: Iopamidol 755 Mg/ML 100 ML Bottle IVPUSH ONE (12:27)
[2023-12-07] MEDS: cefTRIAXone 1 GM Vial IVPUSH ONE (12:29)
[2023-12-07] MEDS: Heparin Sodium 5,000 Units/ML Vial IVPUSH ONE (13:41)
[2023-12-07] MEDS: Heparin Sodium/0.45% NaCl 25,000 UNITS/500 ML BAG IV SCH (13:43)
[2023-12-07] MEDS ORDERED: Ondansetron 4 MG Tab.DIS PO PRN (15:25)
[2023-12-07] MEDS ORDERED: Cyclobenzaprine 10 MG Tab PO PRN (15:25)
[2023-12-07] MEDS ORDERED: EPINEPHrine 1 MG/1 ML Amp IM PRN (15:25)
[2023-12-07] MEDS ORDERED: Meclizine 25 MG Tab PO PRN (15:25)
[2023-12-07] MEDS: Gabapentin 300 MG Cap PO SCH (16:41)
[2023-12-07] MEDS: HYDROmorphone 0.5 MG/0.5 ML Syringe IVPUSH PRN (17:02)
[2023-12-07] MEDS: Enoxaparin 100 MG/1 ML Syringe SUBCUT SCH (17:03)
[2023-12-07] MEDS: Sodium Chloride 0.9% 1,000 ML IV SCH (17:47)
[2023-12-07] MEDS: atorvaSTATin 40 MG Tab PO SCH (21:04)
[2023-12-07] MEDS: diphenhydrAMINE 25 MG Cap PO SCH (21:04)
[2023-12-07] MEDS: Psyllium Husk (3 in 1 Daily Fiber) 0.4 GM Cap PO SCH (23:52)
[2023-12-08 07:10] LABS: HEMATOCRIT 37.5 % (40.0-52.0); HEMOGLOBIN 12.7 g/dL (14.0-18.0); MEAN CORPUSCULAR HGB CONC 33.9 g/dL (32.0-36.0); MEAN CORPUSCULAR VOLUME 85.6 fL (78.0-93.0); RED BLOOD CELL COUNT 4.38 x10^6/uL (4.5-6.0); WHITE BLOOD CELL COUNT,WBC 9.1 x10^3/uL (4.0-10.0)
[2023-12-08 07:30] LABS: ANION GAP 8.6 mmol/L (5-15); CALCIUM 8.9 mg/dL (8.5-10.1); CREATININE 0.9 mg/dL (0.70-1.30); EST CRCL DRUG DOSING (CG) 83.94 mL/min; POTASSIUM,K 3.6 mmol/L (3.5-5.1)
[2023-12-08] MEDS: Azithromycin 250 MG Tab PO SCH (08:23)
[2023-12-08] MEDS: Loratadine 10 MG Tab PO SCH (08:24)
[2023-12-08] MEDS: Multivitamin Tab PO SCH (08:24)
[2023-12-08] MEDS: cefTRIAXone 1 GM Vial IVPUSH SCH (08:25)
[2023-12-08] MEDS: Acetaminophen 500 MG Tab PO PRN (08:32)
[2023-12-08] MEDS ORDERED: HYDROmorphone 2 MG Tab PO PRN (09:15)
[2023-12-08] MEDS: Benzonatate 100 MG Cap PO SCH (09:23)
[2023-12-08] MEDS: Enoxaparin 100 MG/1 ML Syringe SUBCUT SCH (18:00)
[2023-12-09 07:52] LABS: BASOPHILS PERCENT AUTO 0.5 % (0.2-1.2); EOSINOPHILS ABSOLUTE AUTO 0.2 x10^3/uL (0.0-0.5); EOSINOPHILS PERCENT AUTO 2.6 % (0.0-4.0); HEMATOCRIT 39.4 % (40.0-52.0); HEMOGLOBIN 13.1 g/dL (14.0-18.0); IMMATURE GRAN ABSOLUTE AUTO 0.01 x10^3/uL (0.00-0.07); LYMPHOCYTES ABSOLUTE AUTO 1.3 x10^3/uL (1.0-4.8); LYMPHOCYTES PERCENT AUTO 15.7 % (25.0-50.0); MEAN CORPUSCULAR HEMOGLOBIN 28.5 pg (26.0-32.0); MEAN CORPUSCULAR HGB CONC 33.2 g/dL (32.0-36.0); MEAN CORPUSCULAR VOLUME 85.8 fL (78.0-93.0); MONOCYTES ABSOLUTE AUTO 0.8 x10^3/uL (0.0-0.8); MONOCYTES PERCENT AUTO 8.9 % (2.0-11.0); NEUTROPHILS ABSOLUTE AUTO 6.2 x10^3/uL (1.8-7.7); NEUTROPHILS PERCENT AUTO 72.2 % (50.0-80.0); PLATELET COUNT,PLT 227 x10^3/uL (130-400); RED BLOOD CELL COUNT 4.59 x10^6/uL (4.5-6.0); WHITE BLOOD CELL COUNT,WBC 8.5 x10^3/uL (4.0-10.0)
[2023-12-09 08:10] LABS: CREATININE 0.9 mg/dL (0.70-1.30); EST CRCL DRUG DOSING (CG) 86.31 mL/min; POTASSIUM,K 4.1 mmol/L (3.5-5.1)
[2023-12-09] MEDS: Hydrochlorothiazide/Triamterene 25-37.5 Tab PO SCH (08:13)
[2023-12-09 08:16] LABS: ANION GAP 12.1 mmol/L (5-15)
[2023-12-09] MEDS: Sennosides/Docusate Sodium 50-8.6 MG Tab PO PRN (14:24)
[2023-12-09] MEDS: Bisacodyl 5 MG Tab PO PRN (20:35)
[2023-12-09 22:01] LABS: AT III ANTIGEN 101 % (82-136)
[2023-12-10 05:07] LABS: B2GLYCPRT1 IGG AB <10 SGU (<=20); B2GLYCPRT1 IGM AB <10 SMU (<=20)
[2023-12-10 11:06] LABS: HOMOCYSTINE 9 umol/L (0-15)
[2023-12-10 23:06] LABS: PROT C FUNCTIONAL 124 % (83-168); PROT S FUNCTIONAL 88 % (66-143)
[2023-12-11 07:00] LABS: HEMATOCRIT 38.2 % (40.0-52.0); HEMOGLOBIN 13.1 g/dL (14.0-18.0); MEAN CORPUSCULAR HEMOGLOBIN 28.8 pg (26.0-32.0); MEAN CORPUSCULAR HGB CONC 34.3 g/dL (32.0-36.0); RED BLOOD CELL COUNT 4.55 x10^6/uL (4.5-6.0); WHITE BLOOD CELL COUNT,WBC 7.9 x10^3/uL (4.0-10.0)
[2023-12-11 10:07] VITALS: BP 119/61; PULSE 72
[2023-12-11] MEDS ORDERED: Apixaban 2.5 MG Tab PO SCH (21:00)
[2023-12-12 16:06] LABS: ANTI-XA QUALITATIVE INTERP Present (Not Present); ANTICOAG MEDICATION NEUTRALIZ Hepzyme (Not Performed); DRVVT 1:1 MIX RATIO Not Performed (<=1.20); DRVVT CONFIRMATION RATIO Not Performed (<=1.20); DRVVT SCREEN RATIO 1.01 (<=1.20); HEXAGONAL PHOSPHOLIPID CONFIRM Not Performed s (<=7.9); NEUTRALIZED DRVVT SCREEN RATIO Not Performed (<=1.20); NEUTRALIZED PTT-LA RATIO 1.12 (<=1.20); PROTHROMBIN TIME (PT) 18.3 s (12.0-15.5); PTT-LA RATIO >4.00 (<=1.20); THROMBIN TIME (TT) >150.0 s (<=19.5)
[2023-12-13 17:07] LABS: PROTHROMBIN G20210A PATHOG VAR Negative
== END 2023-12-11 10:14 | disposition home or self-care (01) | DRG 175 ==
LOC: VM.ED 10:58 → VM.MS 13:54
PROVIDERS: ADMIT Internal Medicine; ATTEND Internal Medicine
DX: I26.94 Multiple subsegmental thrombotic pulmonary emboli without acute cor pulmonale (principal); I26.99 Other pulmonary embolism without acute cor pulmonale; J18.9 Pneumonia, unspecified organism; E78.5 Hyperlipidemia, unspecified; I10 Essential (primary) hypertension; G47.33 Obstructive sleep apnea (adult) (pediatric); N40.0 Benign prostatic hyperplasia without lower urinary tract symptoms; H91.90 Unspecified hearing loss, unspecified ear; I25.10 Atherosclerotic heart disease of native coronary artery without angina pectoris; E78.00 Pure hypercholesterolemia, unspecified; G47.30 Sleep apnea, unspecified; M54.9 Dorsalgia, unspecified; G89.29 Other chronic pain; R97.20 Elevated prostate specific antigen [PSA]; E66.3 Overweight; G25.81 Restless legs syndrome; D64.9 Anemia, unspecified; H81.03 Meniere's disease, bilateral; M71.21 Synovial cyst of popliteal space [Baker], right knee; Z86.73 Personal history of transient ischemic attack (TIA), and cerebral infarction without residual deficits; Z88.2 Allergy status to sulfonamides; Z88.1 Allergy status to other antibiotic agents; Z88.5 Allergy status to narcotic agent; Z88.8 Allergy status to other drugs, medicaments and biological substances; Z79.899 Other long term (current) drug therapy; Z98.890 Other specified postprocedural states; Z90.89 Acquired absence of other organs; Z90.49 Acquired absence of other specified parts of digestive tract; Z68.28 Body mass index [BMI] 28.0-28.9, adult
CPT/HCPCS: 0241U; 36415; 71045; 71046; 71275; 80048; 80053; 81240; 81241; 83090; 83605; 83735; 83880; 84145; 84484; 85018; 85025; 85027; 85301; 85303; 85306; 85379; 85525; 85598; 85610; 85613; 85670; 85730; 86140; 86146; 86147; 87040; 93005; 93010; 96374; 96375; 97161-GP; 99284; 99285-25; A9270-GY; J0696; J1170; J1644; J1650; J7030; Q9967

== ENCOUNTER 2024-03-07 16:52 | Emergency (ER) | payer MEDICARE ==
[2024-03-07] MEDS ORDERED: Sodium Chloride 0.9% 10 ML Syringe FLUSH PRN (16:58)
[2024-03-07 17:09] LABS: BASOPHILS ABSOLUTE AUTO 0.1 x10^3/uL (0.0-0.2); BASOPHILS PERCENT AUTO 1.1 % (0.2-1.2); EOSINOPHILS ABSOLUTE AUTO 0.2 x10^3/uL (0.0-0.5); EOSINOPHILS PERCENT AUTO 4.5 % (0.0-4.0); HEMATOCRIT 43.6 % (40.0-52.0); HEMOGLOBIN 14.9 g/dL (14.0-18.0); IMMATURE GRAN ABSOLUTE AUTO 0.03 x10^3/uL (0.00-0.07); LYMPHOCYTES ABSOLUTE AUTO 1.6 x10^3/uL (1.0-4.8); LYMPHOCYTES PERCENT AUTO 35.3 % (25.0-50.0); MEAN CORPUSCULAR HEMOGLOBIN 28.8 pg (26.0-32.0); MEAN CORPUSCULAR HGB CONC 34.2 g/dL (32.0-36.0); MEAN CORPUSCULAR VOLUME 84.3 fL (78.0-93.0); MONOCYTES ABSOLUTE AUTO 0.5 x10^3/uL (0.0-0.8); MONOCYTES PERCENT AUTO 9.7 % (2.0-11.0); NEUTROPHILS ABSOLUTE AUTO 2.3 x10^3/uL (1.8-7.7); NEUTROPHILS PERCENT AUTO 48.8 % (50.0-80.0); PLATELET COUNT,PLT 177 x10^3/uL (130-400); RED BLOOD CELL COUNT 5.17 x10^6/uL (4.5-6.0); WHITE BLOOD CELL COUNT,WBC 4.6 x10^3/uL (4.0-10.0)
[2024-03-07 17:30] LABS: A/G RATIO 1.06; ALANINE AMINOTRANSFERASE,ALT 26 U/L (16-63); ALBUMIN 3.7 g/dL (3.4-5.0); ALKALINE PHOSPHATASE 90 U/L (46-116); ASPARTATE AMNIOTRANSFERASE,AST 27 U/L (15-37); BILIRUBIN TOTAL 0.4 mg/dL (0.2-1.0); BLOOD UREA NITROGEN,BUN 23 mg/dL (7-18); CALCIUM 9.8 mg/dL (8.5-10.1); CARBON DIOXIDE,CO2 28 mmol/L (21-32); CHLORIDE,CL 103 mmol/L (98-107); GLUCOSE RANDOM 101 mg/dL (70-99); POTASSIUM,K 3.7 mmol/L (3.5-5.1); PROTEIN TOTAL,TP 7.2 g/dL (6.4-8.2); SODIUM,NA 140 mmol/L (136-145)
[2024-03-07 17:31] LABS: ANION GAP 12.7 mmol/L (5-15)
[2024-03-07 17:32] LABS: ESTIMATED GFR 81 mL/min (>=60)
[2024-03-07] MEDS: Morphine 2 MG/ML SYRINGE IVPUSH ONE (18:01)
[2024-03-07] MEDS: Take Home: traMADol 50 MG, 4 Tab Pack PO ONE (19:00)
== END 2024-03-07 19:06 | disposition home or self-care (01) ==
LOC: VM.ED 16:52
DX: S60.212A Contusion of left wrist, initial encounter (principal); S90.02XA Contusion of left ankle, initial encounter; S70.02XA Contusion of left hip, initial encounter; E78.00 Pure hypercholesterolemia, unspecified; Z90.49 Acquired absence of other specified parts of digestive tract; Z79.899 Other long term (current) drug therapy; Z88.8 Allergy status to other drugs, medicaments and biological substances; Z88.2 Allergy status to sulfonamides; Z88.5 Allergy status to narcotic agent; Z88.1 Allergy status to other antibiotic agents; W01.0XXA Fall on same level from slipping, tripping and stumbling without subsequent striking against object, initial encounter
CPT/HCPCS: 71045; 72170; 73100-LT; 73610-LT; 80053; 85025; 96374; 99283-25; 99284; A9270-GY; J2270